=== PATIENT | female | born 1995 | race Two or more races ===

== ENCOUNTER 2018-03-28 14:44 | Emergency (ER) | payer MEDICAID ==
[~2018-03-28] VITALS: Ht 160 cm; Wt 63.5 kg
[2018-03-28] MEDS ORDERED: SODIUM CHLORIDE 0.9% 1,000 ML IV ONE (16:32)
[2018-03-28] MEDS ORDERED: PROMETHAZINE HCL 25 MG/ML 1ML IV PRN (16:45)
[2018-03-28] MEDS ORDERED: KETOROLAC TROMETH 30 MG/ML 1ML VIAL IV ONE (16:45)
[2018-03-28 17:00] LABS: Urine Bacteria NONE SEEN /hpf (None Seen); Urine Blood Negative /uL (Negative); Urine Mucus FEW (None Seen); Urine Specific Gravity 1.008 (1.001-1.035); Urine WBC 22 /hpf (0 - 5)
[2018-03-28 17:22] LABS: Basophils # (auto) 0 uL; Basophils % (auto) 0.2 % (0.0-2.0); Eosinophils # (auto) 0 uL; Eosinophils % (auto) 0.3 % (0.0-7.0); Hematocrit 41.8 % (36.0-46.0); Hemoglobin 13.8 g/dL (12.2-16.2); Lymphocytes # (auto) 2.3 uL; Lymphocytes % (auto) 18.1 % (10.0-50.0); Mean Corpuscular Hgb Conc. 32.9 g/dL (32.0-36.0); Monocytes # (auto) 0.7 uL; Monocytes % (auto) 5.4 % (0.0-12.0); Neutrophils # (auto) 9.6 uL; Nucleated Red Blood Cells % 0.1 %; Platelet Count (auto) 306 10^3/uL (140-450); Red Blood Cells 4.91 10^6/uL (4.0-5.20); White Blood Cell 12.7 10^3/uL (4.4-10.8)
[2018-03-28 17:23] LABS: Albumin 4.2 g/dL (3.4-5.0); Calcium 8.9 mg/dL (8.5-10.1); Magnesium 2.1 mg/dL (1.6-2.6); Potassium 3.6 mmol/L (3.5-5.1)
[2018-03-28 17:26] LABS: BUN/Creatinine Ratio 7.5; Bilirubin, Total 0.4 mg/dL (0.2-1.0); Total Protein 8.6 g/dL (6.4-8.2)
[2018-03-28] MEDS ORDERED: cefTRIAXone 1GM/50ML D5W 50 ML IV ONE (17:30)
[2018-03-28 18:13] VITALS: BP 110/66
== END 2018-03-28 19:27 | disposition home or self-care (01) ==
LOC: ER 14:44
DX: K80.50 Calculus of bile duct without cholangitis or cholecystitis without obstruction (principal); K80.20 Calculus of gallbladder without cholecystitis without obstruction; N39.0 Urinary tract infection, site not specified; R42 Dizziness and giddiness; H53.8 Other visual disturbances; Z90.49 Acquired absence of other specified parts of digestive tract
CPT/HCPCS: 36415; 76705; 80053; 81001; 83690; 83735; 84702; 85025; 96361; 96365; 96375; 99285; J0696; J1885; J7030

== ENCOUNTER 2021-07-16 08:41 | Observation (INO) | payer MEDICAID | END 2021-07-16 09:50 | disposition home or self-care (01) | LOC: LDRP 08:41 | PROVIDERS: ADMIT Obstetrics & Gynecology; ATTEND Obstetrics & Gynecology | DX: O26.892 Other specified pregnancy related conditions, second trimester (principal); R10.2 Pelvic and perineal pain; Z3A.26 26 weeks gestation of pregnancy; Z88.0 Allergy status to penicillin | CPT/HCPCS: 59025; 81002; 94760; G0378 ==

== ENCOUNTER 2021-08-04 11:00 | Observation (INO) | payer MEDICAID ==
[~2021-08-04] VITALS: Ht 160 cm; Wt 72.6 kg
[2021-08-04 12:35] LABS: Urine Bacteria FEW /hpf (None Seen); Urine Blood 2+ /uL (Negative); Urine Specific Gravity 1.015 (1.001-1.035); Urine WBC 14 /hpf (0 - 5)
== END 2021-08-04 13:11 | disposition home or self-care (01) ==
LOC: LDRP 11:00
PROVIDERS: ADMIT Obstetrics & Gynecology; ATTEND Obstetrics & Gynecology
DX: O26.853 Spotting complicating pregnancy, third trimester (principal); O26.893 Other specified pregnancy related conditions, third trimester; R39.15 Urgency of urination; Z3A.29 29 weeks gestation of pregnancy; Z88.0 Allergy status to penicillin; Z79.899 Other long term (current) drug therapy
CPT/HCPCS: 59025; 81001; 81002; 94760; G0378

== ENCOUNTER 2021-10-16 09:23 | Inpatient (IN) | payer MEDICAID ==
[~2021-10-16] VITALS: Ht 160 cm; Wt 77.6 kg
[2021-10-16] MEDS ORDERED: BUTORPHANOL TARTRATE 2 MG/1 ML VIAL IV PRN ×2 (10:45)
[2021-10-16] MEDS ORDERED: LIDOCAINE 2%HCL (LOCAL ANESTH.) INJ 10ml MDV IJ PRN (10:45)
[2021-10-16] MEDS ORDERED: DERMOPLAST 60ML BOTTLE TOP PRN (10:45)
[2021-10-16] MEDS ORDERED: PHISODERM TOP SOLN 240ML BTL TOP PRN (10:45)
[2021-10-16] MEDS ORDERED: PROMETHAZINE HCL 25 MG/ML 1ML IV PRN (10:45)
[2021-10-16] MEDS ORDERED: WITCH HAZEL-GLYCERIN PAD TOP PRN (10:45)
[2021-10-16 11:28] LABS: Eosinophils # (auto) 0.1 10 ^3/uL (0-0.8); Hemoglobin 10.4 g/dL (12.2-16.2); White Blood Cell 9.1 10^3/uL (4.4-10.8)
[2021-10-16 11:30] LABS: Basophils # (auto) 0 10 ^3/uL (0-0.2); Basophils % (auto) 0.4 % (0.0-2.0); Eosinophils % (auto) 1.1 % (0.0-7.0); Hematocrit 31.8 % (36.0-46.0); Lymphocytes # (auto) 1.7 10 ^3/uL (0.4-5.4); Mean Corpuscular Hemoglobin 25.5 pg (28.0-32.0); Mean Corpuscular Hgb Conc. 32.8 g/dL (32.0-36.0); Mean Corpuscular Volume 77.7 fL (80.0-100.0); Monocytes # (auto) 0.5 10 ^3/uL (0-1.3); Monocytes % (auto) 5.8 % (0.0-12.0); Neutrophils # (auto) 6.7 10 ^3/uL (1.6-8.6); Neutrophils % (auto) 73.7 % (37.0-80.0); Nucleated Red Blood Cells % 0.1 %; Red Blood Cells 4.08 10^6/uL (4.0-5.20); Red Cell Distribution Width 19.1 % (11.8-14.3)
[2021-10-16] MEDS ORDERED: PREN-96 PO (11:42)
[2021-10-16 11:43] LABS: Urine Bacteria FEW /hpf (None Seen); Urine Blood 2+ /uL (Negative); Urine Specific Gravity 1.017 (1.001-1.035); Urine WBC 40 /hpf (0 - 5)
[2021-10-16] MEDS ORDERED: FERR-7 PO (11:43)
[2021-10-16 11:46] LABS: Albumin 2.6 g/dL (3.4-5.0); Potassium 3.8 mmol/L (3.5-5.1)
[2021-10-16 11:49] LABS: Alcohol, Urine < 3.0 mg/dL (0-10); Amphetamine Screen, Urine NEGATIVE (NEGATIVE); Barbiturate Scree,Urine NEGATIVE (NEGATIVE); Benzodiazephine Screen, Urine NEGATIVE (NEGATIVE); Cannabinoid Screen, Urine NEGATIVE (NEGATIVE); Cocaine Screen, Urine NEGATIVE (NEGATIVE); Opiate Scree,Urine NEGATIVE (NEGATIVE); Phencyclidine Screen, Urine NEGATIVE (NEGATIVE)
[2021-10-16 11:51] LABS: BUN/Creatinine Ratio 14.3; Bilirubin, Total 0.4 mg/dL (0.2-1.0); Calcium 8.7 mg/dL (8.5-10.1); Total Protein 7.1 g/dL (6.4-8.2)
[2021-10-16 11:58] LABS: INR 0.93 (0.9-1.15); Partial Thromboplastin Time 24.4 sec (23.6-33.0)
[2021-10-16] MEDS ORDERED: LACTATED RINGER'S 1,000 ML IV ONE ×2 (12:15→12:30)
[2021-10-16] MEDS ORDERED: fentaNYL CITRATE 100 MCG/2 ML VL IV ONE ×2 (12:15→12:30)
[2021-10-16] MEDS ORDERED: LIDOCAINE HCL 2 %PF INJ 10ML AMP IJ ONE ×2 (12:15→12:45)
[2021-10-16] MEDS ORDERED: ROPIVACAINE HCL 200 ML EPI SCH ×3 (12:15→17:00)
[2021-10-16] MEDS ORDERED: ePHEDrine SULFATE 50 MG/ML AMP IV ONE ×3 (12:15→12:45)
[2021-10-16] MEDS ORDERED: NALOXONE HCL 0.4 MG/ML VIAL IV ONE ×3 (12:15→12:30)
[2021-10-16] MEDS: LACTATED RINGER'S 1,000 ML IV SCH ×2 (15:01→18:04)
[2021-10-16] MEDS ORDERED: LACT. RINGERS/OXYTOCIN 20UNITS 1,000 ML IV SCH (15:15)
[2021-10-16] MEDS ORDERED: LACT. RINGERS/OXYTOCIN 20UNITS 500 ML IV ONE ×2 (15:15→15:45)
[2021-10-16] MEDS: DOCUSATE SOD 100 MG CAP PO SCH (22:00)
[2021-10-16] MEDS ORDERED: ONDANSETRON ODT 4 MG TAB PO PRN (22:00)
[2021-10-16] MEDS: ACETAMINOPHEN 325 MG TAB PO PRN (22:52)
[2021-10-16 23:30] VITALS: BP 105/59
[2021-10-16] MEDS: IBUPROFEN 600 MG TAB PO PRN (23:33)
[2021-10-17 03:30] VITALS: BP 95/57
[2021-10-17] MEDS: ACETAMINOPHEN 325 MG TAB PO PRN ×2 (03:54→11:16)
[2021-10-17 07:26] VITALS: BP 99/54
[2021-10-17] MEDS: IBUPROFEN 600 MG TAB PO PRN ×2 (07:36→15:03)
[2021-10-17 08:06] LABS: RPR Non Reactive (Non Reactive)
[2021-10-17 11:00] VITALS: BP 100/48
[2021-10-17 15:05] VITALS: BP 101/50
[2021-10-17 19:11] VITALS: BP 102/61
[2021-10-17] MEDS: DOCUSATE SOD 100 MG CAP PO SCH (22:00)
== END 2021-10-17 22:35 | disposition home or self-care (01) | DRG 560 ==
LOC: LDRP 09:23 → OBSVTOIN 10:05 → LDRP 10:30
PROVIDERS: ADMIT Obstetrics & Gynecology; ATTEND Obstetrics & Gynecology
PROC: 10E0XZZ Delivery of Products of Conception, External Approach (ICD-10-PCS; principal; 2021-10-16)
PROC: 0HQ9XZZ Repair Perineum Skin, External Approach (ICD-10-PCS; 2021-10-16)
PROC: 3E0R3BZ Introduction of Anesthetic Agent into Spinal Canal, Percutaneous Approach (ICD-10-PCS; 2021-10-16)
PROC: 00HU33Z Insertion of Infusion Device into Spinal Canal, Percutaneous Approach (ICD-10-PCS; 2021-10-16)
DX: O70.0 First degree perineal laceration during delivery (principal); Z37.0 Single live birth; Z20.822 Contact with and (suspected) exposure to COVID-19; Z3A.39 39 weeks gestation of pregnancy
CPT/HCPCS: 36415; 59025; 59409; 62282; 80053; 80307; 81001; 81002; 85025; 85610; 85730; 86592; 86850; 86900; 86901; 94760; 96360; 96361; 96365; 96366; G0378; J2001; J2590